=== PATIENT | female | born 1980 | race Caucasian/White ===

== ENCOUNTER 2019-10-23 15:23 | Emergency (ER) | payer OTHER, SELFPAY ==
[2019-10-23 15:31] VITALS: BP 133/86; PULSE 70; RESP 16; TEMP 37.1; O2SAT 100
--- NOTE | 2019-10-23 15:41 | ED.URI ---
HPI - URI/Sore Throat General Chief Complaint: Upper Respiratory Infection Stated Complaint: right ear pain/sore throat Time Seen by Provider: 10/23/19 15:41 Source: patient and RN notes reviewed History of Present Illness HPI Narrative: Patient is a 39-year-old female that presents the urgent care with complaints of feet fatigue and right ear pain for 2 days. Patient states she woke up this morning with a sore throat. Patient has been taking Claritin and Flonase for her symptoms without much relief. 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 Denies of any known fever, nausea, vomiting. No other acute complaints. No acute distress noted. Patient read the plan of care. Related Data Home Medications Medication Instructions Recorded Confirmed buspirone 10 mg PO BID 10/23/19 10/23/19 cetirizine 10 mg PO DAILY 10/23/19 10/23/19 fluticasone propionate [Allergy 1 spray INTRANASAL BID 10/23/19 10/23/19 Relief (fluticasone)] omeprazole magnesium [Prilosec OTC] 20 mg PO DAILY 10/23/19 10/23/19 sertraline 25 mg PO DAILY 10/23/19 10/23/19 Allergies Allergy/AdvReac Type Severity Reaction Status Date / Time Penicillins Allergy Mild Rash Verified 10/23/19 15:38 Review of Systems Review of Systems: Narrative: CONSTITUTIONAL: Denies fever, chills, or sweats. Reports of fatigue EYES: Denies visual changes, redness, or discharge. ENT: Reports of right otalgia, sore throat CARDIOVASCULAR: Denies chest pain, palpitations, or edema. RESPIRATORY: Denies cough or dyspnea. GASTROINTESTINAL: Denies abdominal pain, nausea, vomiting, or diarrhea. GENITOURINARY: Denies dysuria or hematuria. SKIN: Denies rash or itching. MUSCULOSKELETAL: Denies back pain, joint pain, or myalgia. NEUROLOGIC: Denies headache, numbness, or weakness. All other systems reviewed are negative, except as documented in HPI. PMFSH Comments At the time of my signature, I reviewed and agree with the nursing past medical, surgical, social, and family history. There is no relevant family history pertinent to the patient complaint. Exam Narrative: Exam Narrative: GENERAL: This is a well-nourished, well-developed patient, in no apparent distress. HEAD: normocephalic, atraumatic. EYES: PERRL. Sclera clear/white. Vision is grossly intact. EARS: External ears normal, auditory canals clear and without drainage, moderate fluid noted behind right TM without otitis. Bilateral TMs normal without perforation. Hearing grossly intact. NOSE: External nose normal with no obvious nasal discharge, nares without redness, no rhinorrhea. THROAT: Mucous membranes moist, posterior pharynx clear. Mild postnasal drainage NECK: Neck supple CARDIOVASCULAR: Regular rate and rhythm without murmurs, gallops, or rubs. RESPIRATORY: Clear to auscultation. Breath sounds equal bilaterally. No wheezes, rales, or rhonchi. SKIN: warm, intact with no suspicious lesions or rash, good texture and turgor. NEURO: awake, alert, and oriented to person, place and time. There were no obvious focal neurologic abnormalities. EXTREMITIES: No clubbing, cyanosis, or edema. Course Vital Signs Vital signs: Vital Signs Temperature 98.7 F 10/23/19 15:31 Pulse Rate 70 10/23/19 15:31 Respiratory Rate 16 10/23/19 15:31 Blood Pressure 133/86 10/23/19 15:31 Pulse Oximetry 100 10/23/19 15:31 Temperature 98.7 F 10/23/19 15:31 Pulse Rate 70 10/23/19 15:31 Respiratory Rate 16 10/23/19 15:31 Blood Pressure 133/86 10/23/19 15:31 Pulse Oximetry 100 10/23/19 15:31 Reviewed MDM - URI/Sore Throat MDM Narrative Medical decision making narrative: Reviewed lab results with the patient. She is aware that flu and strep swab were both negative. Educated her on strep culture and we will call within 72 hours if culture is positive and antibiotics are necessary. Advised the patient to continue with Claritin and Flonase. Use Flonase prior to bedtime as well as 25 mg capsule of Benadry
== END 2019-10-23 16:03 | disposition home or self-care (01) ==
PROVIDERS: Emergency Provider Nurse Practitioner Family
DX: H92.01 Otalgia, right ear (principal); J06.9 Acute upper respiratory infection, unspecified; F41.9 Anxiety disorder, unspecified; F32.9 Major depressive disorder, single episode, unspecified
CPT/HCPCS: 87081; 87804; 87880; 99213; G0463

== ENCOUNTER 2019-11-16 10:09 | Emergency (ER) | payer OTHER, SELFPAY ==
--- NOTE | 2019-11-16 10:20 | ED.EYEPROB ---
HPI - Eye Problem General Chief complaint: Eye Problems Stated complaint: Possible [place] [facility] Time Seen by Provider: 11/16/19 10:40 Source: patient and RN notes reviewed Mode of arrival: ambulatory Limitations: no limitations History of Present Illness HPI Narrative: 39-year-old female presents with concern for left eye redness, drainage. She denies pain, injury, foreign body sensation. Denies wearing contact lenses. Denies intervention. chief complaint: eye redness Related Data Home Medications Medication Instructions Recorded Confirmed buspirone 10 mg PO BID 10/23/19 11/16/19 cetirizine 10 mg PO DAILY 10/23/19 11/16/19 fluticasone propionate [Allergy 1 spray INTRANASAL BID 10/23/19 11/16/19 Relief (fluticasone)] omeprazole magnesium [Prilosec OTC] 20 mg PO DAILY 10/23/19 11/16/19 sertraline 25 mg PO DAILY 10/23/19 11/16/19 Allergies Allergy/AdvReac Type Severity Reaction Status Date / Time Penicillins Allergy Mild Rash Verified 10/23/19 15:38 Review of Systems Review of Systems: Narrative: CONSTITUTIONAL: Denies malaise, chills, sweats, or fever. EYES: Denies visual changes. Reports left eye redness, discharge. Reports her eye was crusted shut this morning ENT: Denies rhinorrhea, congestion, sinus pain, otalgia or sore throat. RESPIRATORY: Denies cough or dyspnea. SKIN: Denies rash or itching. All systems reviewed & are unremarkable except as noted in HPI and below PMFSH Social History Social History Gender identity (if verbalized by the patient): Female Comments At time of signature, agree with nursing past medical, surgical, social and family history. There is no relevant family history pertinent to the presenting complaint Exam Narrative: Exam Narrative: GENERAL: Well-appearing, well-nourished, and in no acute distress. HEAD: Normocephalic, atraumatic. EYES: Right PERRLA, conjunctivae clear, and EOMI. left eye sclera and conjunctive injected, green crusty discharge noted, PERRLA, EOMI. ENT: Nares clear. Mucous membranes moist. NECK: Supple. CHEST: No respiratory distress. Speaks in full sentences. HEART: Regular rate and rhythm. No murmur heard. Normal peripheral pulses. SKIN: Warm, dry, no rash. NEURO: Alert and oriented x3. PSYCH: Normal mood and affect Course Course Emergency Course: Patient is aware of diagnosis, understands and agrees to treatment plan. Anticipatory guidance given. Patient agrees to follow-up as directed and is aware of reasons to seek care at the emergency department. Portions of this record may have been created with voice recognition software Vital Signs Vital signs: Vital Signs Temperature 98.3 F 11/16/19 10:21 Pulse Rate 86 11/16/19 10:21 Respiratory Rate 18 11/16/19 10:21 Blood Pressure 130/89 11/16/19 10:21 Pulse Oximetry 99 11/16/19 10:21 Temperature 98.3 F 11/16/19 10:21 Pulse Rate 86 11/16/19 10:21 Respiratory Rate 18 11/16/19 10:21 Blood Pressure 130/89 11/16/19 10:21 Pulse Oximetry 99 11/16/19 10:21 Reviewed. Patient has been instructed to follow up with her primary care provider within the next week regarding her elevated blood pressure today. MDM - Eye Problem MDM Narrative Medical decision making narrative: Consideration of the following conditions may be warranted for the presenting problem, they are not final diagnoses: Bacterial conjunctivitis, allergic conjunctivitis, viral conjunctivitis, foreign body, blepharitis, chalazion, hordeolum, corneal abrasion. Exam findings show no acute concerns or changes; patient is non-toxic appearing and is in no distress. Patient is appropriate for outpatient treatment and follow-up. Critical Care Time Critical Care Time Critical Care Time: No Discharge Plan Discharge Clinical Impression: Bacterial conjunctivitis Patient Disposition: Home, Self-Care Condition: Stable Instructions: Conjunctivitis (ED) Additional Instructions: Do not touch or rub your
[2019-11-16 10:21] VITALS: BP 130/89; PULSE 86; RESP 18; TEMP 36.8; O2SAT 99
== END 2019-11-16 10:54 | disposition home or self-care (01) ==
PROVIDERS: Emergency Provider Nurse Practitioner
DX: H10.9 Unspecified conjunctivitis (principal); K21.9 Gastro-esophageal reflux disease without esophagitis; F41.9 Anxiety disorder, unspecified; F32.9 Major depressive disorder, single episode, unspecified
CPT/HCPCS: 99213; G0463

== ENCOUNTER 2022-02-20 12:59 | Emergency (ER) | payer OTHER, SELFPAY ==
[2022-02-20 13:14] VITALS: BP 139/79; PULSE 94; RESP 16; TEMP 36.9; O2SAT 98
--- NOTE | 2022-02-20 13:20 | ED.EXTPRO ---
HPI - Extremity Problem General Chief complaint: Skin/Abscess/Foreign Body Stated complaint: painful and swollen rt second toe Time Seen by Provider: 02/20/22 13:21 Source: patient, RN notes reviewed and old records reviewed Mode of arrival: ambulatory Limitations: no limitations History of Present Illness HPI Narrative: 41-year-old female presents to the [facility] with right second toe redness and swelling. Redness noted at the base of the nail dorsal aspect second right toe. Denies any injuries. No bruising. Capillary refill under 2 seconds. Positive pedal pulse Onset (ago): day(s) (1) Related Data Home Medications Medication Instructions Recorded Confirmed buspirone 10 mg tablet 10 mg PO BID 10/23/19 11/16/19 cetirizine 10 mg capsule 10 mg PO DAILY 10/23/19 11/16/19 fluticasone propionate 50 1 spray intranasal BID 10/23/19 11/16/19 mcg/actuation nasal spray,suspension (Allergy Relief (fluticasone)) omeprazole magnesium 20 mg 20 mg PO DAILY 10/23/19 11/16/19 tablet,delayed release (Prilosec OTC) sertraline 25 mg tablet 25 mg PO DAILY 10/23/19 11/16/19 Allergies Allergy/AdvReac Type Severity Reaction Status Date / Time Penicillins Allergy Mild Rash Verified 10/23/19 15:38 Review of Systems Review of Systems: All systems reviewed & are unremarkable except as noted in HPI and below Constitutional: Constitutional: Reports no additional constitutional complaints, Denies chills and Denies fever(s) Eyes: Eyes: Reports no additional eye complaints ENT: Reports system reviewed and no additional complaints, except as documented Cardiovascular: Cardiovascular: Reports no additional cardiovascular complaints Respiratory: Respiratory: Reports no additional respiratory complaints Gastrointestinal: Gastrointestinal: Reports no additional gastrointestinal complaints Musculoskeletal: Musculoskeletal: Reports as per HPI Comments: Right second toe Integumentary/Breasts: Skin/Breast: Reports as per HPI, Reports swelling and Reports erythema Neurologic: Reports system reviewed and no additional complaints, except as documented Psychiatric: Psychiatric: Reports no additional psychiatric complaints Allergic/Immunologic: Allergic/Immunologic: Reports no additional allergic/immunologic complaints PMFSH Past Medical History Medical History Anxiety and depression H/O gastroesophageal reflux (GERD) Social History Social History Gender identity (if verbalized by the patient): Female Comments At the time of my signature, I reviewed and agree with the nursing past medical, surgical, social, and family history. There is no relevant family history pertinent to the patient complaint. Exam Const: General: healthy appearing, no acute distress and alert Nutritional Appearance: well nourished Orientation/consciousness: patient oriented x3 Limitations: no limitations HENMT: Head: normal to inspection Ears: external ears normal Eyes: General: appearance normal, both eyes and all related structures Pupils: Equal, round and reactive pupils present Neck: Neck: normal visual inspection, no lymphadenopathy and no meningeal signs Chest: Chest palpation & inspection: normal inspection of the chest Resp: Effort & Inspection: normal respiratory effort and no use of accessory muscles Auscultation: clear to auscultation bilaterally, no crackles, no rales, no rhonchi and no wheezes Cardio: Rate: regular rate Rhythm: regular rhythm GI: GI Palp: Yes Soft to palpation and No Tenderness to palpation present (GI) Back/Spine/Pelvis: Cervical Spine: normal cervical lordosis Thoracic/Lumbar Spine: thoracic and lumbar spine normal to inspection Skin: General skin exam: normal color Rashes: no rashes Wounds: no wounds Other: Redness noted to the base of the second toe nail right foot. Mild swelling. Ten
== END 2022-02-20 13:33 | disposition home or self-care (01) ==
PROVIDERS: Emergency Provider Nurse Practitioner
DX: L03.031 Cellulitis of right toe (principal); K21.9 Gastro-esophageal reflux disease without esophagitis; F41.9 Anxiety disorder, unspecified; F32.A Depression, unspecified
CPT/HCPCS: 99213; G0463

== ENCOUNTER 2022-10-04 08:09 | Outpatient (CLI) | payer OTHER, SELFPAY ==
--- NOTE | 2022-10-31 18:43 | WPDSLEEPSTUD ---
Sleep Study Date of Study: 10/04/22 Ordering Provider: REBECCA Seth Interpreting Physician: Divya Claudio DO Sleep Study Type: Polysomnogram Height: 1.65 m Weight: 97.069 kg Body Mass Index: 35.6 Neck Circumference (inches): 15 [place]: 10 Reason for Sleep Study Daytime fatigue Sleep History The patient is a 42-year-old female depression, GERD, anxiety, lupus, seasonal allergies and history of tobacco use that had a sleep study ordered for evaluation of daytime fatigue. The patient denies awakening from sleep short of breath. She occasionally awakens at night with heartburn, belching or cough. She occasionally snores loudly enough that others complain. She occasionally has trouble sleeping when she has a cold. She denies waking up gasping for air throughout the night. She denies having breathing problems at night observed by herself or others. She occasionally sweats excessively at night. She occasionally has heart palpitations or irregular heartbeats during the night. She constantly falls asleep during the day but never while driving. She denies sleep paralysis and cataplexy. She constantly experiences vivid dreamlike scenes upon awakening or falling asleep. She denies feeling afraid of going to sleep. She occasionally has nightmares. She constantly remembers her dreams. She occasionally has thoughts racing through her mind. She is occasionally depressed but rarely has anxiety. She occasionally has muscular tension. She occasionally notices parts of her body jerk. She denies kicking during the night. She rarely has crawling and aching feelings in her legs. She rarely has leg pain during the night. She occasionally grinds her teeth during sleep and occasionally awakens with morning jaw pain. She is rarely bothered by pain during the day and rarely awakened pain night. She constantly wakes up feeling stiff. She frequently wakes up with sore and achy muscles. She frequently wakes up with pain in the neck, spine or other joints. She goes to bed between 10 30-11 p.m. on weekdays and between 11:00 p.m. to midnight on the weekends. He takes her 10-15 minutes to fall asleep. She wakes up 1-2 times throughout the night to urinate. He is able to fall back asleep immediately. He wakes up between 8:29 a.m. on both weekdays and weekends. She typically gets 8-10 hours of sleep per night. She will stay in bed for 10-20 minutes after waking up morning. She currently lives with her and 2 teenage children. She does not consume any caffeinated beverages within 2 hours of bedtime. She does not engage in physical exercise before bedtime. She will watch television before falling asleep. She will take naps in the afternoon or the evening but they are not refreshing. She does not consume any caffeinated beverages throughout the day. She denies tobacco and alcohol use. She will use 1 CBD gummy per week. [facility] Past Medical History Medical History Anxiety and depression H/O gastroesophageal reflux (GERD) Lupus Obesity Skin cancer Family History Family History Mother Heart disease Diabetes mellitus Grandparent Heart disease Diabetes mellitus Grandparent Lung cancer Grandparent FH: throat cancer Social History Social History Social History: socially smoked for less than a year. Smoking status: Former smoker Gender identity (if verbalized by the patient): Female Medications Home Medications Medication Instructions Recorded Confirmed Type cetirizine 10 mg capsule 10 mg PO DAILY 10/23/19 07/31/22 History fluticasone propionate 50 1 spray intranasal BID 10/23/19 07/31/22 History mcg/actuation nasal spray,suspension (Allergy Relief (fluticasone)) omeprazole magnesium 20 mg 20 mg PO DAILY 10/23/19 07/31/22 Hi
[2022-10-31 19:02] VITALS: BMI 35.6
== END 2022-10-05 06:41 | disposition home or self-care (01) ==
PROVIDERS: Visit Provider Physician Assistant
DX: G47.10 Hypersomnia, unspecified (principal); K21.9 Gastro-esophageal reflux disease without esophagitis; M32.9 Systemic lupus erythematosus, unspecified; Z87.891 Personal history of nicotine dependence; F41.8 Other specified anxiety disorders
CPT/HCPCS: 95810

== ENCOUNTER 2023-03-23 12:02 | Outpatient (CLI) | payer OTHER, SELFPAY ==
[2023-03-23 12:23] LABS: Basophils Absolute Auto 0.1 K/mm3 (0.0-0.1); Basophils Percent Auto 0.8 % (0.2-1.2); Eosinophils Absolute Auto 0.3 K/mm3 (0-0.3); Eosinophils Percent Auto 5.1 % (0-4.4); Hematocrit 41.6 % (37.0-47.0); Hemoglobin 13.8 g/dL (12.0-15.0); Immature Granulocyte Absolute 0.01 K/mm3 (0.00-0.031); Immature Granulocyte Percent A 0.2 % (0-0.5); Lymphocytes Absolute Auto 2.12 K/mm3 (0.9-3.2); Lymphocytes Percent Auto 33.8 % (18.3-44.2); Mean Corpuscular HGB Conc 33.2 g/dl (32-36); Mean Corpuscular Hemoglobin 30.5 pg (26-34); Mean Corpuscular Volume 91.8 fl (80-100); Mean Platelet Volume 9.5 fl (7.4-10.4); Monocytes Absolute Auto 0.4 K/mm3 (0.1-0.6); Monocytes Percent Auto 6.5 % (2.6-8.5); Neutrophils Absolute Auto 3.4 K/mm3 (1.3-6.7); Neutrophils Percent Auto 53.6 % (45.5-73.1); Platelet Count Result 298 k/mm3 (150-375); Red Blood Count 4.53 M/mm3 (4.2-5.4); Red Cell Distribution Width 12.7 % (11.5-14.5); White Blood Count 6.3 K/mm3 (4.5-10.0)
[2023-03-23 12:34] LABS: Iron 119 ug/dL (37-170)
[2023-03-23 12:35] LABS: Alanine Aminotransferase 15 U/L (6-35); Albumin Level 4.1 g/dL (3.5-5.1); Alkaline Phosphatase 73 U/L (38-126); Anion Gap 9 mmol/L (8-16); Aspartate Amino Transferase 21 U/L (14-36); Bilirubin,Total 0.7 mg/dL (0.2-1.3); Blood Urea Nitrogen 10 mg/dL (7-17); Calcium 8.6 mg/dL (8.4-10.2); Carbon Dioxide 23 mmol/L (22-30); Chloride 106 mmol/L (98-107); Estimated Glomerular Filt Rate > 60; Glucose 101 mg/dL (65-110); Potassium 3.9 mmol/L (3.4-5.0); Sodium 138 mmol/L (137-145)
[2023-03-23 12:44] LABS: Percent Iron Saturation 43 % (20-50)
[2023-03-23 13:06] LABS: Thyroid Stimulating Hormone 0.557 uIU/mL (0.465-4.680)
[2023-03-23 13:42] LABS: Folic Acid 12.1 ng/mL (2.76->20)
[2023-03-27 15:47] LABS: Vitamin D 1,25 (OH)2 Total 46 pg/mL (18-72); Vitamin D2 1,25 (OH)2 <8 pg/mL; Vitamin D3 1,25 (OH)2 46 pg/mL
== END 2023-03-23 12:03 | disposition home or self-care (01) ==
LOC: ANHLAB 12:04
PROVIDERS: Visit Provider Physician Assistant
DX: G47.10 Hypersomnia, unspecified (principal)
CPT/HCPCS: 36415; 80053; 82607; 82652; 82728; 82746; 83540; 83550; 84443; 85025

== ENCOUNTER 2024-03-06 12:20 | Emergency (ER) | payer OTHER, SELFPAY ==
[2024-03-06 12:33] VITALS: BP 127/79; PULSE 91; RESP 16; TEMP 36.4; O2SAT 100
--- NOTE | 2024-03-06 13:17 | ED.URI ---
HPI - URI/Sore Throat General Chief Complaint: Upper Respiratory Infection Stated Complaint: sore throat,urinary issue Time Seen by Provider: 03/06/24 13:17 Source: patient Mode of arrival: ambulatory Limitations: no limitations History of Present Illness HPI Narrative: 43-year-old female presents with complaint sore throat, fatigue, body aches starting yesterday. Patient reports white spots tonsils. Also reports bladder spasm, urinary frequency, dysuria. Denies nausea vomiting diarrhea. Afebrile. All systems reviewed and negative except as noted above. Related Data Home Medications Medication Instructions Recorded Confirmed cetirizine 10 mg capsule 10 mg PO DAILY 10/23/19 11/27/22 fluticasone propionate 50 1 spray intranasal BID 10/23/19 11/27/22 mcg/actuation nasal spray,suspension (Allergy Relief (fluticasone)) paroxetine HCl 20 mg tablet (Paxil) 20 mg PO DAILY 07/31/22 11/27/22 estradiol 10 mcg vaginal tablet mcg vaginal 03/26/23 (Vagifem) duloxetine 60 mg capsule,delayed mg PO 03/06/24 release gabapentin 300 mg capsule mg 03/06/24 Allergies Allergy/AdvReac Type Severity Reaction Status Date / Time Penicillins Allergy Mild Rash Verified 03/06/24 12:56 Review of Systems Review of Systems: CONSTITUTIONAL: Denies fever, chills, or sweats. reports fatigue. EYES: Denies visual changes, redness, or discharge. ENT: Denies rhinorrhea, congestion . Reports sore throat throat. denies otalgia. CARDIOVASCULAR: Denies chest pain, palpitations, or edema. RESPIRATORY: Denies cough or dyspnea. GASTROINTESTINAL: Denies abdominal pain, nausea, vomiting, or diarrhea. GENITOURINARY: Reports dysuria frequency, bladder spasm. Denies hematuria. SKIN: Denies rash or itching. MUSCULOSKELETAL: Denies back pain, joint pain, or myalgia. NEUROLOGIC: Denies headache, numbness, or weakness. PSYCHIATRIC: Denies anxiety or depression. All other systems reviewed are negative, except as documented in HPI. [facility] Past Medical History Medical History Anxiety and depression H/O gastroesophageal reflux (GERD) Lupus Obesity Skin cancer Surgical History Surgical History H/O gastric sleeve Family History Family History Mother Heart disease Diabetes mellitus Grandparent Heart disease Diabetes mellitus Grandparent Lung cancer Grandparent FH: throat cancer Social History Social History (Updated 03/26/23 @ 13:55 by CHEYANNE Montiel) Social History: socially smoked for less than a year. Smoking status: Former smoker Additional smoking assessment comments: socially in her early 20's Alcohol intake: current Alcohol use details: socially Substance use: never Substance use type: does not use Living arrangements: with family Occupation/Education: retired Gender identity (if verbalized by the patient): Female Comments At time of signature, agree with nursing past medical, surgical, social and family history. There is no relevant family history pertinent to the presenting complaint. Exam Narrative: GENERAL: This is a well-nourished, well-developed patient, in no apparent distress. HEAD: normocephalic, atraumatic. EYES: PERRL. Sclera clear/white. Vision is grossly intact. EARS: External ears normal, auditory canals clear and without drainage, TMs normal without perforation. Hearing grossly intact. NOSE: External nose normal with no obvious nasal discharge, nares without redness, no rhinorrhea. THROAT: Mucous membranes moist, erythematous, tonsils 1+ bilaterally with exudates NECK: Neck supple, non-tender without lymphadenopathy, masses or thyromegaly. CARDIOVASCULAR: Regular rate and rhythm without murmurs, gallops, or rubs. RESPIRATORY: Clear to auscultation. Breath sounds equal bilaterally. No wheezes, rales,
== END 2024-03-06 13:35 | disposition home or self-care (01) ==
PROVIDERS: Emergency Provider Nurse Practitioner Family
DX: J02.9 Acute pharyngitis, unspecified (principal); N39.0 Urinary tract infection, site not specified; B96.20 Unspecified Escherichia coli [E. coli] as the cause of diseases classified elsewhere; K21.9 Gastro-esophageal reflux disease without esophagitis; F41.9 Anxiety disorder, unspecified; F32.A Depression, unspecified; E66.9 Obesity, unspecified; Z68.22 Body mass index [BMI] 22.0-22.9, adult; Z98.84 Bariatric surgery status; Z85.828 Personal history of other malignant neoplasm of skin; Z87.891 Personal history of nicotine dependence
CPT/HCPCS: 87077; 87081; 87086; 87088; 87186; 99213; G0463